=== PATIENT | female | born 1965 | race Caucasian/White ===

== ENCOUNTER 2022-05-17 16:16 | Outpatient (CLI) | payer BC, SELFPAY ==
--- NOTE | 2022-05-17 16:00 | CRLHL7_ITS ---
For Patients: As a result of the Century Cures Act, medical imaging exams and procedure reports are released immediately into your electronic medical record. You may view this report before your referring provider. If you have questions, please contact your health care provider. INDICATION: Nasal obstruction. TECHNIQUE: Noncontrast CT images acquired through the paranasal sinuses. COMPARISON: None. FINDINGS: [id number] mucosal thickening and small air-fluid level in the right maxillary sinus. The right ethmoid infundibulum is widely patent. The left maxillary sinus and left ethmoid infundibulum are clear. The frontal sinuses and frontal recesses are clear. Mild opacification of right anterior ethmoid air cells. The sphenoid sinuses and sphenoethmoidal recesses are clear. Mild sinusoidal nasal septal deviation with 3 mm rightward bowing anteriorly and slight leftward bowing posteriorly. Small 2 mm leftward directed septal spur. No nasal cavity masses. The mastoid air cells are clear. IMPRESSION: 1. [id number] mucosal thickening and small air-fluid level in the right maxillary sinus raises the possibility of acute sinusitis. 2. Mild sinusoidal nasal septal deviation. Small leftward directed septal spur. Please note that all CT scans at this facility use dose modulation, iterative reconstruction, and/or weight-based dosing when appropriate to reduce radiation dose to as low as reasonably achievable. Dictated by Julio Bravo MD @ 05/17/2022 8:49:52 PM (Electronically Signed)
== END 2022-05-17 16:17 | disposition home or self-care (01) ==
LOC: CT 16:17
PROVIDERS: PCP Nurse Practitioner Family; Visit Provider Nurse Practitioner Family
DX: J34.89 Other specified disorders of nose and nasal sinuses (principal); J32.0 Chronic maxillary sinusitis; J34.2 Deviated nasal septum
CPT/HCPCS: 70486

== ENCOUNTER 2023-03-14 08:58 | Outpatient (CLI) | payer BC, SELFPAY | END 2023-03-14 08:59 | disposition home or self-care (01) | PROVIDERS: PCP Nurse Practitioner Family; Visit Provider Nurse Practitioner Family | DX: Z01.818 Encounter for other preprocedural examination (principal) | CPT/HCPCS: 80048; 85025 ==

== ENCOUNTER 2023-03-24 11:44 | Day surgery (SDC) | payer BC, SELFPAY ==
[2023-03-24] VITALS (12 sets, daily range): BP systolic 130–157; BP diastolic 82–94; PULSE 65–89; RESP 12–16; TEMP 36.3–36.4; O2SAT 94–98; BMI 22.1
[2023-03-24] MEDS: LACTATED RINGERS 1000 ML 1,000 ML 100 ML IV (11:50)
[2023-03-24] MEDS: OXYMETAZOLINE 0.05% NASAL SPRAY 2 SPRAY NOSTRIL-B (12:34)
[2023-03-24] MEDS: SODIUM CHLORIDE 0.9 % (FLUSH) 10 ML SYRINGE IVF (12:38)
[2023-03-24] MEDS: COCAINE HCL 4 % 4 ML SOLUTION NOSTRIL-B (13:49)
[2023-03-24] MEDS: BUPIVACAINE 0.5%/EPINEPHRINE 0.9 MG (30.9 ML) INJECTION (13:51)
[2023-03-24] MEDS: MUPIROCIN 1 GM PACKET 1 APPLIC TOPICAL (13:57)
--- NOTE | 2023-03-24 14:24 | W.ANESCHARGE ---
Anesthesia Charges Start Date/Time Anesthesia Start Date: 03/24/23 Anesthesia Start Time: 13:34 Stop Date/Time Anesthesia Stop Date: 03/24/23 Anesthesia Stop Time: 14:21
[2023-03-24] MEDS: AYR SALINE NASAL GEL 1 APPLIC NOSTRIL-B (14:53)
--- NOTE | 2023-03-24 14:53 | SUR.PHASEI ---
patient met discharge criteria per anesthesia
--- NOTE | 2023-03-24 14:54 | W.PM.ENTPROC ---
Procedure Note Date of procedure: 03/24/23 Procedure: Preoperative diagnosis nasal obstruction, deviated septum, inferior turbinate hypertrophy, right anterior ethmoid and right maxillary sinus chronic rhinosinusitis Postoperative diagnosis same plus findings of purulent drainage in the opacified ethmoid cell with a large amount of polypoid thickening of the lining Procedure septoplasty, submucous partial resection right inferior turbinate, endoscopic right anterior ethmoidectomy, endoscopic right maxillary antrostomy with tissue removal, image guidance utilized Under general endotracheal anesthesia the patient was prepped and draped usual fashion the nose injected and decongested. A right hemitransfixion incision was made left anterior and posterior tunnels were created. A vertical incision was made through the cartilage and a right posterior tunnel created. The deflected portions of septal bone posteriorly were resected a large piece was trimmed and returned to intraseptal space. The anterior septum moved back to midline following this. The hemitransfixion was closed with 2 4-0 chromic sutures Stab incision was made in the anterior of the right inferior turbinate a tunnel created with a [place] dissector. The emily bone was then for outfractured and a conservative anterior submucous resection performed. The Coblation was used for hemostasis and to cauterize along the inferior per 10% intramurally. The right middle turbinate was crushed with the Lucas forceps. The inferior quarter of the uncinate process was taken down exposing natural ostium to maxillary sinus. This was enlarged to a 9 mm diameter. There was some mucosal thickening that was removed from the floor of the sinus as well as from the natural os. This single opacified ethmoid cell was entered utilizing image guidance and a suction. There was purulent drainage coming from this. The cell was opened and a moderate to large amount of polypoid mucosa was removed from that large ethmoid cell. Silastic stents were secured on either side of the septum. A 3-0 nylon was used to do this. Merocel pack coated in Bactroban was placed in each side of the nose. The patient procedure well was taken recovery in satisfactory condition. Blood loss less than 20 mL. Surgeon: Wilmer Marroquin MD
== END 2023-03-24 15:51 | disposition home or self-care (01) ==
LOC: OR 11:44
PROVIDERS: PCP Nurse Practitioner Family; Visit Provider Otolaryngology
PROC: (CPT 31231; principal; 2023-03-24 13:30)
DX: J34.2 Deviated nasal septum (principal); J34.3 Hypertrophy of nasal turbinates; J32.0 Chronic maxillary sinusitis; J32.2 Chronic ethmoidal sinusitis
CPT/HCPCS: 30520; 30140; 31254; 31267; 00160; 88305; A9270; J0330; J1100; J2250; J2371; J2405; J2704; J3010; J7120